=== PATIENT | female | born 1975 | race Caucasian/White ===

== ENCOUNTER 2022-03-31 11:54 | Emergency (ER) | payer OTHER ==
[~2022-03-31 11:54] MED LIST: IBUPROFEN600 MG PO
[2022-03-31 14:08] LABS: HEMOGLOBIN 12.1 gm/dl (12.3-15.3); RED BLOOD COUNT 4.19 M/UL (4.00-5.10); WHITE BLOOD COUNT 9.5 K/UL (4.5-11.0)
[2022-03-31 14:26] LABS: BUN/CREATININE RATIO 18 (0-10)
== END 2022-03-31 18:05 | disposition home or self-care (01) ==
LOC: ER1 11:54
PROVIDERS: Physician Assistant
DX: R10.2 Pelvic and perineal pain (principal)
CPT/HCPCS: 76830; 80053; 81001; 84703; 85025; 99283